=== PATIENT | male | born 1940 | race Caucasian/White ===

== ENCOUNTER 2017-06-16 22:36 | Inpatient (IN) | payer OTHER ==
[~2017-06-16] VITALS: Ht 175.3 cm; Wt 120.2 kg
[~2017-06-16 22:36] MED LIST: CARVEDILOL3.125 MG PO; FISH OIL 1,0001 EAC7 PO; LIPITOR10 MG PO; MOVE FREE JOIN1 EACH PO; REQUIP4 MG PO; VITAMIN B-122500 MCG SL; VITAMIN C500 M1 PO
[2017-06-17 05:52] VITALS: BP 127/70
[2017-06-17 12:16] VITALS: BP 138/81
[2017-06-17 15:17] VITALS: BP 119/69
[2017-06-17 19:56] VITALS: BP 111/67
[2017-06-18 00:20] VITALS: BP 118/60
[2017-06-18 04:00] VITALS: BP 117/68
[2017-06-18 06:44] LABS: HEMATOCRIT 40.4 % (38.0-50.0); MCV 93.5 FL (86-99)
[2017-06-18 08:03] VITALS: BP 113/61
[2017-06-18] MEDS ORDERED: ASPIRIN EC325 MG PO (09:13)
[2017-06-18] MEDS ORDERED: BENADRYL25 MG PO (09:13)
[2017-06-18] MEDS ORDERED: SENNA PLUS TAB1 EACH PO (09:14)
[2017-06-18] MEDS ORDERED: TYLENOL REGULA325 MG PO (09:14)
[2017-06-18] MEDS ORDERED: CELECOXIB200 MG PO (09:15)
[2017-06-18] MEDS ORDERED: HYDROMORPHONE HC2 MG PO (09:15)
[2017-06-18] MEDS ORDERED: LIDOCAINE1 EACH TD (09:15)
[2017-06-18 12:05] VITALS: BP 127/64
== END 2017-06-18 13:40 | disposition home or self-care (01) | DRG 483 ==
LOC: CANRESERV 22:36 → ENRESERV 22:36 → 2SOUTH 06-17 05:17 → ENRESERV 06-17 08:22 → 2SOUTH 06-17 09:08 → 3WEST 06-17 11:56 → 2SOUTH 06-17 15:13 → 3WEST 06-18 13:40
PROVIDERS: Orthopaedic Surgery
PROC: 0LS40ZZ Reposition Left Upper Arm Tendon, Open Approach (ICD-10-PCS; principal; 2017-06-17)
PROC: 0RRK00Z Replacement of Left Shoulder Joint with Reverse Ball and Socket Synthetic Substitute, Open Approach (ICD-10-PCS; principal; 2017-06-17)
DX: M19.012 Primary osteoarthritis, left shoulder (principal); M75.22 Bicipital tendinitis, left shoulder; S46.012A Strain of muscle(s) and tendon(s) of the rotator cuff of left shoulder, initial encounter; W10.9XXA Fall (on) (from) unspecified stairs and steps, initial encounter; Y92.009 Unspecified place in unspecified non-institutional (private) residence as the place of occurrence of the external cause; G47.30 Sleep apnea, unspecified; I10 Essential (primary) hypertension; E78.00 Pure hypercholesterolemia, unspecified; Z80.9 Family history of malignant neoplasm, unspecified; Z82.49 Family history of ischemic heart disease and other diseases of the circulatory system; Z87.891 Personal history of nicotine dependence
CPT/HCPCS: 73020; 85014; 85018; 94799; J0131; J0330; J0690; J1100; J1170; J2250; J2405; J2795; J3010; J7050